=== PATIENT | female | born 1995 | race African-American/Black ===

== ENCOUNTER 2023-07-11 17:38 | Emergency (ER) | payer OTHER ==
[~2023-07-11] VITALS: Ht 167.6 cm; Wt 77.3 kg
[2023-07-11 17:45] VITALS: BP 123/80; PULSE 77; RESP 20; TEMP 98.4; O2SAT 99
[2023-07-11] MEDS ORDERED: HYDROcodone-ACET 5/325MG TAB PO ONE (19:30)
[2023-07-11] MEDS ORDERED: IBUPROFEN 800 MG TAB PO ONE (19:30)
[2023-07-11] MEDS ORDERED: IBUP-1455 PO (22:08)
[2023-07-11] MEDS ORDERED: CYCL-837 PO (22:08)
== END 2023-07-11 22:12 | disposition home or self-care (01) ==
LOC: ER 17:38 → EDBD 17:38 → ER 22:12
DX: S06.0X1A Concussion with loss of consciousness of 30 minutes or less, initial encounter (principal); S16.1XXA Strain of muscle, fascia and tendon at neck level, initial encounter; M25.512 Pain in left shoulder; M25.511 Pain in right shoulder; M25.562 Pain in left knee; V49.9XXA Car occupant (driver) (passenger) injured in unspecified traffic accident, initial encounter; Y93.89 Activity, other specified; Y92.488 Other paved roadways as the place of occurrence of the external cause; Y99.8 Other external cause status
CPT/HCPCS: 70450; 72125; 73030; 73562